=== PATIENT | male | born 1960 | race Caucasian/White ===

== ENCOUNTER 2017-12-29 03:20 | Emergency (ER) | payer OTHER ==
[~2017-12-29] VITALS: Ht 182.9 cm; Wt 109.0 kg
[2017-12-29] MEDS ORDERED: METF500T6 PO (03:59)
[2017-12-29] MEDS ORDERED: ATEN-42 PO (04:00)
[2017-12-29] MEDS ORDERED: LOSA1TAB40 MT (04:00)
[2017-12-29] MEDS ORDERED: DOXY150T MT (04:01)
[2017-12-29] MEDS ORDERED: CLON-457 MT (04:01)
[2017-12-29 04:44] LABS: BASOPHILS % 1.1 % (0.0-2.0); EOSINOPHILS % 3.3 % (0.0-5.0); HEMOGLOBIN. 13.4 g/dL (14.0-18.0); LYMPHOCYTES % 18.7 % (20.0-50.0); MEAN CORPUSCULAR VOLUME 86.4 fL (80.0-94.0); MEAN PLATELET VOLUME 10.7 fl (7.4-10.4); MONOCYTES % 5.8 % (2.0-8.0); NEUTROPHILS % 71.1 % (40.0-76.0); PLATELET 201 x1000/uL (130-400); RED BLOOD CELL COUNT 4.63 mill/uL (4.7-6.1); RED CELL DISTRIBUTION WIDTH 13.7 % (11.6-14.6)
[2017-12-29 04:50] LABS: CHLORIDE 107 mEq/L (98-107); PROTHROMBIN TIME 10.6 sec (9.4-11.6)
[2017-12-29 06:37] VITALS: BP 148/96
== END 2017-12-29 06:57 | disposition home or self-care (01) ==
LOC: ER 03:20
DX: M25.511 Pain in right shoulder (principal); R07.89 Other chest pain; I10 Essential (primary) hypertension; D64.9 Anemia, unspecified; E11.65 Type 2 diabetes mellitus with hyperglycemia; M41.9 Scoliosis, unspecified; I51.7 Cardiomegaly; R79.89 Other specified abnormal findings of blood chemistry; Z79.84 Long term (current) use of oral hypoglycemic drugs
CPT/HCPCS: 36415; 71045; 80053; 83880; 84484; 85025; 85610; 93005; 99285; Z7610

== ENCOUNTER 2018-10-25 12:19 | Inpatient (IN) | payer OTHER ==
[~2018-10-25] VITALS: Ht 182.9 cm; Wt 108.9 kg
[~2018-10-25 12:19] MED LIST: ATEN-42 PO; CLON-457 MT; DOXY150T MT; LOSA1TAB40 MT; METF-414 PO
[2018-10-25] MEDS ORDERED: ASPIRIN 81MG TABLET PO ONE (13:00)
[2018-10-25] MEDS ORDERED: HYDRALAZINE 20MG/ML VIAL IV ONE (14:00)
[2018-10-25 14:06] LABS: CHLORIDE 107 mEq/L (98-107)
[2018-10-25 14:08] LABS: BASOPHILS % 0.4 % (0.0-2.0); EOSINOPHILS % 0.2 % (0.0-5.0); HEMATOCRIT. 42.7 % (42.0-52.0); HEMOGLOBIN. 14.4 g/dL (14.0-18.0); LYMPHOCYTES % 11.1 % (20.0-50.0); MEAN CORPUSCULAR HEMOGLOBIN 29.4 pg (28.0-32.0); MEAN CORPUSCULAR VOLUME 87.2 fL (80.0-94.0); MEAN PLATELET VOLUME 10.8 fl (7.4-10.4); MONOCYTES % 3.8 % (2.0-8.0); NEUTROPHILS % 84.5 % (40.0-76.0); PLATELET 188 x1000/uL (130-400); RED BLOOD CELL COUNT 4.89 mill/uL (4.7-6.1); RED CELL DISTRIBUTION WIDTH 13.7 % (11.6-14.6)
[2018-10-25 14:15] LABS: PARTIAL THROMBOPLASTIN TIME 29.8 sec (23.4-31.0); PROTHROMBIN TIME 10.8 sec (9.6-11.0)
[2018-10-25] MEDS ORDERED: POTASSIUM CHLORIDE 20MEQ TABLET SR PO ONE (14:15)
[2018-10-25] MEDS ORDERED: ONDANSETRON HCL 4MG/2ML INJ IV PRN (15:30)
[2018-10-25] MEDS ORDERED: CLONIDINE 0.1MG TABLET PO PRN (15:30)
[2018-10-25] MEDS ORDERED: IPRATROPIUM/ALBUTEROL 0.5-3(2.5)MG/3ML NEB INH PRN (15:30)
[2018-10-25] MEDS ORDERED: HYDROCODONE/ACETAMINOPHEN 5/325MG TABLET PO PRN (15:30)
[2018-10-25 17:08] VITALS: BP 153/97
[2018-10-25] MEDS: CLONIDINE 0.1MG TABLET PO SCH ×2 (18:51→21:39)
[2018-10-25] MEDS: ATENOLOL 50 MG TABLET PO SCH (18:52)
[2018-10-25] MEDS: ENOXAPARIN 40MG/0.4ML SYR SUBCUT SCH (18:55)
[2018-10-25 19:04] LABS: CLARITY URINE CLEAR (CLEAR); COLOR URINE YELLOW (YELLOW); KETONES URINE NEGATIVE (NEGATIVE); LEUKOCYTE ESTERASE URINE NEGATIVE (NEGATIVE); NITRITE URINE NEGATIVE (NEGATIVE); OCCULT BLOOD URINE NEGATIVE (NEGATIVE); PH URINE 6.5 (4.5-8.0); PROTEIN URINE NEGATIVE (NEGATIVE); SPECIFIC GRAVITY URINE 1.007 (1.005-1.030); UROBILINOGEN URINE 0.2 E.U./dL (0.2-1.0)
[2018-10-25 19:24] LABS: *AMPHETAMINES SCREEN URINE NEGATIVE (NEGATIVE); *BARBITURATES SCREEN URINE NEGATIVE (NEGATIVE); *BENZODIAZEPINES SCREEN URINE NEGATIVE (NEGATIVE); *COCAINE SCREEN URINE NEGATIVE (NEGATIVE); CANNABINOID URINE SCREEN NEGATIVE (NEGATIVE); METHADONE URINE SCREEN NEGATIVE (NEGATIVE); OPIATES URINE SCREEN NEGATIVE (NEGATIVE); PHENCYCLIDINE URINE SCREEN NEGATIVE (NEGATIVE)
[2018-10-25] MEDS ORDERED: DEXTROSE 50% WATER 50ML SYRINGE IV PRN (19:30)
[2018-10-25 19:53] VITALS: BP 162/90
[2018-10-25] MEDS ORDERED: BLOOD SUGAR DIAGNOSTIC STRIP TEST SCH (21:00)
[2018-10-25] MEDS: BLOOD SUGAR DIAGNOSTIC STRIP TEST SCH (21:42)
[2018-10-25] MEDS: INSULIN LISPRO 100 UNITS/ML SUBCUT SCH (21:42)
[2018-10-25 23:51] VITALS: BP 145/80
[2018-10-26] LABS: CREATINE KINASE 98 IU/L (39-308)
[2018-10-26 03:58] VITALS: BP 170/93
[2018-10-26] MEDS: CLONIDINE 0.1MG TABLET PO SCH ×3 (05:50→21:24)
[2018-10-26 07:15] LABS: BASOPHILS % 0.3 % (0.0-2.0); HEMATOCRIT. 40.8 % (42.0-52.0); HEMOGLOBIN. 13.7 g/dL (14.0-18.0); MEAN CORPUSCULAR HEMOGLOBIN 29.1 pg (28.0-32.0); MEAN CORPUSCULAR VOLUME 86.3 fL (80.0-94.0); MEAN PLATELET VOLUME 11.1 fl (7.4-10.4); MONOCYTES % 6.7 % (2.0-8.0); PLATELET 191 x1000/uL (130-400); RED BLOOD CELL COUNT 4.73 mill/uL (4.7-6.1); RED CELL DISTRIBUTION WIDTH 13.8 % (11.6-14.6)
[2018-10-26] MEDS: BLOOD SUGAR DIAGNOSTIC STRIP TEST SCH ×4 (07:20→21:10)
[2018-10-26 07:24] LABS: CHLORIDE 109 mEq/L (98-107)
[2018-10-26 07:35] LABS: LDL CHOLESTEROL 73 mg/dL (5-100)
[2018-10-26 07:36] LABS: CREATINE KINASE 102 IU/L (39-308)
[2018-10-26 07:37] LABS: HDL CHOLESTEROL 38 mg/dL (40-59)
[2018-10-26 08:00] VITALS: BP 134/92
[2018-10-26] MEDS: INSULIN LISPRO 100 UNITS/ML SUBCUT SCH ×4 (08:20→21:00)
[2018-10-26] MEDS: NIFEDIPINE XL 60MG TAB PO SCH ×3 (09:00→21:24)
[2018-10-26] MEDS: ATENOLOL 50 MG TABLET PO SCH ×2 (09:24→21:23)
[2018-10-26] MEDS: ASPIRIN 81MG EC TABLET PO SCH (09:24)
[2018-10-26] MEDS: LOSARTAN POTASSIUM 100 MG TABLET PO SCH (09:25)
[2018-10-26 12:00] VITALS: BP 173/100
[2018-10-26 12:28] VITALS: BP 173/97
[2018-10-26] MEDS: LEVOFLOXACIN 500MG PREMIX 100 ML IV SCH (13:09)
[2018-10-26 16:00] VITALS: BP 156/85
[2018-10-26] MEDS: ENOXAPARIN 40MG/0.4ML SYR SUBCUT SCH (17:40)
[2018-10-26 20:00] VITALS: BP 140/90
[2018-10-27] VITALS (7 sets, daily range): BP systolic 135–145; BP diastolic 77–84
[2018-10-27 06:25] LABS: BASOPHILS % 0.3 % (0.0-2.0); EOSINOPHILS % 2.7 % (0.0-5.0); HEMATOCRIT. 44.6 % (42.0-52.0); HEMOGLOBIN. 15.3 g/dL (14.0-18.0); LYMPHOCYTES % 19.1 % (20.0-50.0); MEAN CORPUSCULAR HEMOGLOBIN 29.7 pg (28.0-32.0); MEAN CORPUSCULAR VOLUME 86.8 fL (80.0-94.0); MEAN PLATELET VOLUME 11.3 fl (7.4-10.4); MONOCYTES % 7.9 % (2.0-8.0); PLATELET 195 x1000/uL (130-400); RED BLOOD CELL COUNT 5.14 mill/uL (4.7-6.1); RED CELL DISTRIBUTION WIDTH 13.9 % (11.6-14.6)
[2018-10-27 07:20] LABS: CHLORIDE 107 mEq/L (98-107)
[2018-10-27] MEDS: BLOOD SUGAR DIAGNOSTIC STRIP TEST SCH ×2 (07:20→12:20)
[2018-10-27] MEDS: CLONIDINE 0.1MG TABLET PO SCH ×2 (07:22→17:04)
[2018-10-27] MEDS: INSULIN LISPRO 100 UNITS/ML SUBCUT SCH ×2 (07:50→17:07)
[2018-10-27] MEDS: ATENOLOL 50 MG TABLET PO SCH (08:57)
[2018-10-27] MEDS: NIFEDIPINE XL 60MG TAB PO SCH (08:57)
[2018-10-27] MEDS: ASPIRIN 81MG EC TABLET PO SCH (08:57)
[2018-10-27] MEDS: LOSARTAN POTASSIUM 100 MG TABLET PO SCH (08:57)
[2018-10-27] MEDS: LEVOFLOXACIN 500MG PREMIX 100 ML IV SCH (11:29)
== END 2018-10-27 17:50 | disposition home or self-care (01) | DRG 305 ==
LOC: ER 12:19 → 6WST 14:10 → EDBEDREQ 14:13 → EDBEDREQTM 14:13 → ENRESERV 15:18
PROVIDERS: ADMIT Internal Medicine; ATTEND Internal Medicine
DX: I16.0 Hypertensive urgency (principal); D68.59 Other primary thrombophilia; E11.9 Type 2 diabetes mellitus without complications; E87.6 Hypokalemia; R07.89 Other chest pain; I25.10 Atherosclerotic heart disease of native coronary artery without angina pectoris; E66.9 Obesity, unspecified; I10 Essential (primary) hypertension; Z79.84 Long term (current) use of oral hypoglycemic drugs; Z82.49 Family history of ischemic heart disease and other diseases of the circulatory system; Z83.3 Family history of diabetes mellitus; Z79.899 Other long term (current) drug therapy; Z68.32 Body mass index [BMI] 32.0-32.9, adult
CPT/HCPCS: 36415; 71045; 80048; 80061; 80305; 82550; 82962; 83036; 83735; 83880; 84145; 84443; 84484; 93005; 93306; 96374; 99291; J0360; J1650; J1815; J1956; J7040

== ENCOUNTER 2019-03-20 17:41 | Emergency (ER) | payer OTHER ==
[~2019-03-20] VITALS: Ht 182.9 cm; Wt 109.0 kg
[~2019-03-20 17:41] MED LIST changes: -ATEN-42 PO; -CLON-457 MT; -DOXY150T MT; -LOSA1TAB40 MT
[2019-03-20] MEDS ORDERED: NIFE20CA PO (19:18)
[2019-03-20] MEDS ORDERED: LOSA50TA41 PO (19:18)
[2019-03-20] MEDS ORDERED: DOXA4TAB3 PO (19:18)
[2019-03-20] MEDS ORDERED: CLON0.3T PO (19:18)
[2019-03-20 19:51] VITALS: BP 144/94
== END 2019-03-20 21:10 | disposition home or self-care (01) ==
LOC: ER 17:41
DX: G44.009 Cluster headache syndrome, unspecified, not intractable (principal); E11.9 Type 2 diabetes mellitus without complications; I10 Essential (primary) hypertension; Z79.84 Long term (current) use of oral hypoglycemic drugs; Z79.899 Other long term (current) drug therapy
CPT/HCPCS: 99282; Z7610

== ENCOUNTER → 2020-08-13 | Outpatient (CLI) | payer OTHER ==
[~2020-08-13] MED LIST changes: +AMLO-361 PO; +BUDE6HFA IH; +CLON0.3T PO; +DOXA4TAB3 PO; +LOSA50TA41 PO; +METF-416 PO; +NIFE20CA PO; +SERT50TA PO; +ZOLP5TAB2 PO
== END | disposition home or self-care (01) ==
LOC: LAB 15:38
DX: Z01.812 Encounter for preprocedural laboratory examination (principal); Z20.822 Contact with and (suspected) exposure to COVID-19
CPT/HCPCS: 87426

== ENCOUNTER → 2020-08-15 | Day surgery (SDC) | payer OTHER ==
[~2020-08-15] VITALS: Ht 182.9 cm; Wt 107.5 kg
[~2020-08-15] MED LIST changes: +BUPIVACAINE HCL 0.5% (5MG/ML) 50ML ONE; +CEFAZOLIN SODIUM 1000MG/VIAL ONE; -DOXA4TAB3 PO; +FENTANYL CITRATE/PF 50MCG/ML 2ML VIAL ONE; +GLYCOPYRROLATE 0.2 MG/ML 2ML VIAL ONE; -LOSA50TA41 PO; +MEPERIDINE HCL/PF 25MG/ML CPJ IV PRN; -METF-414 PO; +METOCLOPRAMIDE HCL 10MG/2ML VIAL ONE; +MIDAZOLAM HCL 2 MG/2 ML VIAL ONE; +MORPHINE SULFATE 2 MG/ML CPJ (NOT FOR IM USE) IV PRN; -NIFE20CA PO; +ONDANSETRON HCL 4MG/2ML INJ IV PRN; +ONDANSETRON HCL 4MG/2ML INJ ONE; +PROPOFOL 200MG/20ML VIAL IV ONE; +SKIN ADHESIVE 0.7 GM EA TOP ONE; +SUCCINYLCHOLINE CHLORIDE 200MG/10ML IV ONE
[2020-08-15] MEDS: SODIUM CHLORIDE 0.9% 1,000 ML IV ONE (07:44)
[2020-08-15 09:30] VITALS: BP 105/51
[2020-08-15] MEDS: HYDROMORPHONE HCL/PF 2MG/ML CPJ IV PRN (09:30)
[2020-08-15] MEDS: HYDROCODONE/ACETAMINOPHEN 5/325MG TABLET PO PRN (10:03)
== END | disposition home or self-care (01) ==
LOC: OR 06:11
PROVIDERS: ATTEND Surgery
DX: K64.8 Other hemorrhoids (principal); I10 Essential (primary) hypertension; E11.9 Type 2 diabetes mellitus without complications; J45.909 Unspecified asthma, uncomplicated; Z79.899 Other long term (current) drug therapy; Z98.890 Other specified postprocedural states; Z79.84 Long term (current) use of oral hypoglycemic drugs; Z88.8 Allergy status to other drugs, medicaments and biological substances; Z82.49 Family history of ischemic heart disease and other diseases of the circulatory system; Z83.3 Family history of diabetes mellitus
CPT/HCPCS: 46260; 82962; 88304; J0330; J0690; J1170; J2250; J2405; J2704; J2765; J3010; J3490